=== PATIENT | female | born 1970 | race Caucasian/White ===

== ENCOUNTER 2018-07-01 11:23 | Inpatient (IN) ==
[2018-07-01] MEDS ORDERED: ceFAZolin 1 GM Premix Inj 1 GM/50 ML PIGGYBACK IV.SIG ONE (12:12)
[2018-07-01 12:29] LABS: Baso # (Auto) 0.1 th/mm3 (0.0-0.2); Baso % (Auto) 0.8 % (0.0-2.0); Eos # (Auto) 0.1 th/mm3 (0.0-0.4); Eos % (Auto) 1.5 % (0.0-4.0); Hematocrit 37.9 % (35.0-46.0); Hemoglobin 12.1 gm/dL (11.6-15.3); Lymph # (Auto) 1.3 th/mm3 (1.0-4.8); Lymph % (Auto) 12.9 % (9.0-44.0); Mean Corpuscular HGB Conc 31.9 % (32.0-36.0); Mean Corpuscular Hemoglobin 23.7 pg (27.0-34.0); Mean Corpuscular Volume 74.3 fL (80.0-100.0); Mean Platelet Volume 8.1 fL (7.0-11.0); Mono # (Auto) 0.6 th/mm3 (0.0-0.9); Mono % (Auto) 5.7 % (0.0-8.0); Neut # (Auto) 7.8 th/mm3 (1.8-7.7); Neut % (Auto) 79.1 % (16.0-70.0); Platelet Count 534 th/mm3 (150-450); Red Cell Distribution Width 28.2 % (11.6-17.2); White Blood Count 9.9 th/mm3 (4.0-11.0)
[2018-07-01] MEDS ORDERED: Metoprolol Tartrate 25 MG Tablet PO ONE (12:45)
[2018-07-01] MEDS ORDERED: Chlorhexidine Gluconate 2% 1 Pack (2 Cloths) TOPICAL ONE (12:45)
[2018-07-01] MEDS ORDERED: Sodium Chlor 0.9% Inj 500 ML IV.CONT ONE (12:45)
[2018-07-01 12:47] LABS: Anion Gap 9 meq/L (5-15); Blood Urea Nitrogen 19 mg/dL (7-18); Calcium 8.7 mg/dL (8.5-10.1); Chloride 105 meq/L (98-107); Glomerular Filtration Rate Greater Than 89 mL/min (>89); Glucose,Random 79 mg/dL (74-106); Potassium 3.8 meq/L (3.5-5.1); Sodium 141 meq/L (136-145)
[2018-07-01] MEDS ORDERED: ceFAZolin 2 GM IV; once IV.SIG SCH (13:00)
[2018-07-01] MEDS ORDERED: Bupivacaine Liposomal PF 1.3% Inj 20 ML Vial ONE (13:02)
[2018-07-01 13:06] LABS: Acanthocytes Occ; Ovalocytes 1+
[2018-07-01 13:07] LABS: Dimorphic RBC Present; Platelet Morphology Normal (Normal)
[2018-07-01] MEDS ORDERED: Benzocaine 20% Oral Spray 60 ML Can OROPHARYNG PRN (16:00)
[2018-07-01] MEDS ORDERED: Naloxone Inj 0.4 MG/ML Vial IV.PUSH PRN ×2 (16:00)
[2018-07-01] MEDS ORDERED: Post-op Orders (for Pharmacy) OTHER ONE (16:15)
[2018-07-01] MEDS ORDERED: fentaNYL Citrate Inj 100 MCG/2 ML Ampul ONE ×2 (16:22)
[2018-07-01] MEDS ORDERED: *HYDROmorphone PF Inj 1 MG/ML Ampul PERIprocedural Use ONLY ONE ×2 (16:30→16:52)
[2018-07-01] MEDS: Pantoprazole Inj 40 MG Vial IV.PUSH SCH (17:00)
[2018-07-01] MEDS: Ketorolac Inj 30 MG/ML (IVP) Vial IV.PUSH PRN (17:10)
[2018-07-01] MEDS: HYDROmorphone PCA Inj 6 MG/30 ML PCA.VIAL PCA PRN (17:20)
--- NOTE | 2018-07-01 19:00 | MP ---
cc: Aaron Robins MD DATE OF OPERATION: 07/01/2018 PREOPERATIVE DIAGNOSIS: Colon cancer near the stomach. 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 PROCEDURE PERFORMED: Transverse colectomy with splenic flexure colectomy with partial gastric resection attached to the tumor with primary anastomosis. takedown of splenic flexure ANESTHESIA: General. SURGEON: Aaron Robins MD TRAM INSPECTOR: ALEXANDRA Huitron The TANKAGE GRINDER was present from beginning to the end of the case assisting in all portions of the procedure. It was necessary to have this individual in the room to assist in the above surgical procedure. The surgical procedure was assisted by the TANKAGE GRINDER. The TANKAGE GRINDER presence was necessary throughout the case for appropriate retraction, dissection, visualization, and resection of the important anatomical structures during the surgical procedure. The TANKAGE GRINDER was assisting throughout the entirety of the operation. The skill set of the TANKAGE GRINDER is medically and surgically necessary to safely complete the surgical procedure. During the surgical case the operating room surgical scrub technician was working instrument table and passing instruments to the attending surgeon and TANKAGE GRINDER The TANKAGE GRINDER was directly assisting the operating surgeon and involved in the technical aspects of the surgical case. INDICATIONS FOR PROCEDURE: This is a 48-year-old female who was found to have anemia and a colonoscopy showed a malignancy in the colon. Plans were made for above. FINDINGS: Intraoperatively, it was found that coinciding with the CT scan this tumor in the distal transverse colon was very attached to the stomach and could not be . It appeared to be infiltrating the gastric wall and for this reason, a partial gastrectomy along the greater curve was done to resect the tumor en bloc. DESCRIPTION OF PROCEDURE: The patient was taken to the operating room and placed in supine position. After anesthesia, her abdomen was prepped with Betadine. She had a Vidal catheter, 2 IVs and an arterial line that anesthesia placed. A timeout was done. She was given preoperative antibiotics. She had a preoperative bowel prep as well. We made an incision just below the xiphoid down to the left of the umbilicus, an 11 cm incision, and dissected into the abdomen. A wound protector device was applied. The tumor was easily palpable along the distal portion of the transverse colon about 6 cm from the right colic. We were able to take down the white line of Toldt near the spleen. The splenic attachments were taken down with a Harmonic scalpel to release the splenic flexure. Once this was accomplished, we were able to dissect up to the proximal transverse colon and that was very dilated from the partial obstruction. We got about 6 cm proximal to the tumor just before the middle colic vessels. Using the GI stapling device, we the colon. The tumor was attached to the omentum and also the greater curve of the stomach and could not be . It appeared to be infiltrating the muscular layer of the stomach. For this reason, we dissected down to the root of the mesentery, avoiding the middle colic. The tumor was then elevated so we were able to get into the lesser sac, identifying the pancreas. The tumor was then further identified where it was attached to the stomach along the greater curve. Once we the distal end just past the splenic flexure with the GI stapling device, we were able to elevate the specimen further up into the field. We were able to take a green load of the GI stapling device and fire 2 loads to resect and divide the greater curve of the stomach attached to the tumor. The specimen was then removed en bloc. We labeled the proximal margin with a short stitch and the stomach with a long silk suture. This was for pathological identification. We then irrigated copiously. She appeared to have adequate stomach volume along the distal end of the greater curve. We were able to thread the NG tube through the pylorus. We oversewed a portion of the staple line with silk pop-off suture. The liver was smooth. The peritoneal surfaces were smooth. The gallbladder was smooth no stones. We then readied our anastomoses. There was excellent blood supply in the proximal and distal components of the colon. We did a [id number] functional end-to-end anastomosis by lining up the tinea, creating 2 enterotomies and using a GI stapling device, I was able to staple across to perform a [id number] functional end-to-end anastomosis. The crotch of the staple line was reinforced with a silk suture. The TX 60 was then used to staple the remaining enterotomy. This staple line was oversewn with silk pop-off suture. The mesentery was reapproximated with 3-0 silk to prevent internal herniation. The omentum left on the proximal colon was then draped over the staple line. We then irrigated copiously. We checked the appendix and it was normal. The ascending colon was normal. Her uterus was slightly enlarged. Both ovaries appeared normal. Uterus had a consistency with fibroids. No other gross abnormality was seen. We then closed the fascia with #1 PDS looped. The skin was closed with a skin stapling device and a GERALD dressing was applied. An abdominal binder was applied. The patient was returned to recovery room. There were no immediate postop complication at the time of this dictation. MD ANNABELLE Phillips/leno , 04:23 PM , 04:35 PM JOHNATHAN
[2018-07-02] MEDS: HYDROmorphone PCA Inj 6 MG/30 ML PCA.VIAL PCA PRN ×2 (05:43→14:49)
[2018-07-02 06:50] LABS: Baso # (Auto) 0.1 th/mm3 (0.0-0.2); Baso % (Auto) 0.6 % (0.0-2.0); Eos % (Auto) 0.2 % (0.0-4.0); Hematocrit 30.2 % (35.0-46.0); Hemoglobin 9.5 gm/dL (11.6-15.3); Lymph # (Auto) 1.1 th/mm3 (1.0-4.8); Lymph % (Auto) 11.5 % (9.0-44.0); Mean Corpuscular HGB Conc 31.4 % (32.0-36.0); Mean Corpuscular Hemoglobin 23.6 pg (27.0-34.0); Mean Corpuscular Volume 75.2 fL (80.0-100.0); Mean Platelet Volume 8.7 fL (7.0-11.0); Mono # (Auto) 0.5 th/mm3 (0.0-0.9); Mono % (Auto) 5.9 % (0.0-8.0); Neut # (Auto) 7.5 th/mm3 (1.8-7.7); Neut % (Auto) 81.8 % (16.0-70.0); Platelet Count 392 th/mm3 (150-450); Red Blood Count 4.02 mil/mm3 (4.00-5.30); Red Cell Distribution Width 27.5 % (11.6-17.2); White Blood Count 9.2 th/mm3 (4.0-11.0)
[2018-07-02 07:19] LABS: Anion Gap 8 meq/L (5-15); Blood Urea Nitrogen 11 mg/dL (7-18); Calcium 7.5 mg/dL (8.5-10.1); Carbon Dioxide 27.2 meq/L (21.0-32.0); Chloride 107 meq/L (98-107); Glomerular Filtration Rate Greater Than 89 mL/min (>89); Glucose,Random 65 mg/dL (74-106); Potassium 4.1 meq/L (3.5-5.1); Sodium 142 meq/L (136-145)
[2018-07-02 08:19] LABS: Acanthocytes Occ; Dimorphic RBC Present; Ovalocytes 1+; Platelet Estimate Normal (Normal); Platelet Morphology Normal (Normal)
--- NOTE | 2018-07-02 09:40 | P.PNGS ---
Subjective Interval history: DAILY PROGRESS NOTE FOR SURGICAL ATTENDING, DR. LAUREN MENDOZA Resting in bed No complaints No events overnight Pain controlled Daughter at the bedside Physical Exam Vital signs: Vital Signs 07/01/18 12:27 07/01/18 16:14 07/01/18 16:30 Temperature 98.4 F 98.0 F Pulse Rate 78 97 H 92 H Respiratory Rate 18 27 H 20 Blood Pressure 110/68 130/62 Pulse Oximetry 98 100 100 07/01/18 16:45 07/01/18 17:00 07/01/18 17:15 Temperature Pulse Rate 100 H 109 H 110 H Respiratory Rate 18 22 14 Blood Pressure 141/69 H 139/68 131/65 Pulse Oximetry 100 100 100 07/01/18 17:30 07/01/18 18:00 07/01/18 20:00 Temperature 98.5 F 98.0 F 98.5 F Pulse Rate 112 H 109 H 107 H Respiratory Rate 13 11 L 16 Blood Pressure 129/67 134/69 126/57 L Pulse Oximetry 99 99 97 07/01/18 22:00 07/02/18 00:00 07/02/18 04:00 Temperature 97.8 F 98 F 97.7 F Pulse Rate 96 H 84 75 Respiratory Rate 17 15 16 Blood Pressure 112/59 L 104/57 L 112/64 Pulse Oximetry 99 99 99 07/02/18 08:51 Temperature Pulse Rate Respiratory Rate Blood Pressure Pulse Oximetry 95 Intake & Output 07/01/18 07/02/18 07/02/18 18:59 06:59 18:59 Intake Total 2850 / 2850 1200 / 1200 1200 / 1200 Output Total 200 / 200 375 / 375 Balance 2650 / 2650 825 / 825 1200 / 1200 Weight 49 kg 46.2 kg Intake: IV 150 / 150 1200 / 1200 LR 1000 mL Inj 1,000 ML @ 100 1000 / 1000 mls/hr IV.CONT .Q10H [facility] Rx#: [id number] Ofirmev Inj 1,000 mg In 100 ml 200 / 200 @ 400 mls/hr IV.SIG Q6H [facility] Rx# :[id number] Ancef 1 GM Premix Inj 1 gm In 50 / 50 50 ml @ 0 mls/hr IV.SIG .STK[facility] Rx#:[id number] Flagyl 500 MG Inj 100 ML @ 100 100 / 100 mls/hr IV.SIG SUPERVISOR PAINTING DEPARTMENT [facility] Rx#: [id number] Oral 0 / 0 Anesthesia Amount 2700 / 2700 Other 1200 / 1200 Output: Urine 375 / 375 Estimated Blood Loss 50 / 50 Urine Amount (Catheter) 150 / 150 Indwelling Urethral Catheter 150 / 150 Gastric Drainage 0 / 0 Right Nare Nasogastric Tube 0 / 0 Other: Other Intake Source Saline Solution Weight On Admission 49 kg Narrative: Alert and awake Abd: soft; flat; tender with palpation; GERALD in place with just two scant dots of bloody drainage---good seal; Binder in place - Urinary Catheter Management Indwelling Urethral Catheter Cath placed during this visit: yes Reason for continuing: Other continuation reason Insertion date: 07/01/18 Insertion time: 14:06 Results - Labs 07/02/18 05:01 07/02/18 05:01 Laboratory Results - last 24 hr 07/01/18 07/01/18 07/01/18 12:15 12:15 12:15 WBC 9.9 RBC 5.10 Hgb 12.1 Hct 37.9 MCV 74.3 L MCH 23.7 L MCHC 31.9 L RDW 28.2 H Plt Count 534 H D MPV 8.1 Prelim Diff (Auto) Slide review pending Neut % (Auto) 79.1 H Lymph % (Auto) 12.9 [place] % (Auto) 5.7 Eos % (Auto) 1.5 Baso % (Auto) 0.8 Neut # (Auto) 7.8 H Lymph # (Auto) 1.3 [place] # (Auto) 0.6 Eos # (Auto) 0.1 Baso # (Auto) 0.1 WBC Differential . Diff Scan Auto diff confirmed Differential Comment . Platelet Estimate High H Platelet Morphology Normal Dimorphic RBCs Present H Ovalocytes 1+ H Acanthocytes (Spur) Occ H Sodium 141 Potassium 3.8 Chloride 105 Carbon Dioxide 27.0 Anion Gap 9 BUN 19 H Creatinine 0.60 Estimated GFR Greater than 89 Random Glucose 79 Calcium 8.7 Blood Type O Positive Antibody Screen Negative MTS Gel Crossmatch See Detail 07/02/18 07/02/18 05:01 05:01 WBC 9.2 RBC 4.02 Hgb 9.5 L D Hct 30.2 L MCV 75.2 L MCH 23.6 L MCHC 31.4 L RDW 27.5 H Plt Count 392 MPV 8.7 Prelim Diff (Auto) Slide review pending Neut % (Auto) 81.8 H Lymph % (Auto) 11.5 [place] % (Auto) 5.9 Eos % (Auto) 0.2 Baso % (Auto) 0.6 Neut # (Auto) 7.5 Lymph # (Auto) 1.1 [place] # (Auto) 0.5 Eos # (Auto) 0.0 Baso # (Auto) 0.1 WBC Differential . Diff Scan Auto diff confirmed Differential Comment . Platelet Estimate Normal Platelet Morphology Normal Dimorphic RBCs Present H Ovalocytes 1+ H Acanthocytes (Spur) Occ H Sodium 142 Potassium 4.1 Chloride 107 Carbon Dioxide 27.2 Anion Gap 8 BUN 11 Creatinine 0.45 L Estimated GFR Greater than 89 Random Glucose 65 L Calcium 7.5 L D Blood Type Antibody Screen MTS Gel Crossmatch Assessment and Plan - Assessment (1) Adenocarcinoma of descending colon Code(s): C18.6 - Malignant neoplasm of descending colon Status: Acute Plan: 48 year old female POD1 transverse colectomy with splenic flexure colectomy with partial gastric resection -Continue IVF -NGT to [facility] until bowel function returns -Continue MEDICAL LABORATORY TECHNICIANS for pain control -DC Vidal -Recheck CBC in AM -OOB as tolerated - Attending Attestation NOTE FOR SURGICAL ATTENDING, DR. LAUREN MENDOZA I agree with above assessment and plan. The exam, history, and the medical decision-making described in the above note were completed with the assistance of the mid-level provider. I reviewed and agree with the findings presented. I attest that I had a [id number] encounter with the patient on the same day, and personally performed and documented my assessment and findings in the medical record. The following services were provided during this hospital visit: Chart data review, vital sign assessments/reviewing monitor data Review of consultations notes if present. Medication orders/review and/or management Ordering and/or reviewing lab tests Ordering and/or interpreting/reviewing x-rays and/or diagnostic studies Care of the patient and discussion of the patient with the care team Documentation time To help prompt me to consider important information that might be impacting today's encounter and assessment, Information from prior notes written by myself or my colleagues may have been "brought forward/copy and pasted" into today's note.
[2018-07-02] MEDS: Ketorolac Inj 30 MG/ML (IVP) Vial IV.PUSH PRN (16:22)
[2018-07-02] MEDS: Pantoprazole Inj 40 MG Vial IV.PUSH SCH (16:22)
[2018-07-03 05:43] LABS: Baso % (Auto) 0.6 % (0.0-2.0); Eos # (Auto) 0.1 th/mm3 (0.0-0.4); Hematocrit 30.6 % (35.0-46.0); Hemoglobin 9.4 gm/dL (11.6-15.3); Lymph # (Auto) 0.7 th/mm3 (1.0-4.8); Lymph % (Auto) 9.1 % (9.0-44.0); Mean Corpuscular Hemoglobin 23.7 pg (27.0-34.0); Mean Corpuscular Volume 77.5 fL (80.0-100.0); Mean Platelet Volume 8.6 fL (7.0-11.0); Mono # (Auto) 0.4 th/mm3 (0.0-0.9); Mono % (Auto) 5.5 % (0.0-8.0); Neut # (Auto) 6.4 th/mm3 (1.8-7.7); Neut % (Auto) 83.8 % (16.0-70.0); Platelet Count 369 th/mm3 (150-450); Red Blood Count 3.95 mil/mm3 (4.00-5.30); Red Cell Distribution Width 27.6 % (11.6-17.2); White Blood Count 7.7 th/mm3 (4.0-11.0)
[2018-07-03 05:46] LABS: Mean Corpuscular HGB Conc 30.6 % (32.0-36.0)
[2018-07-03 06:07] LABS: Anion Gap 13 meq/L (5-15); Blood Urea Nitrogen 6 mg/dL (7-18); Calcium 7.8 mg/dL (8.5-10.1); Carbon Dioxide 21.1 meq/L (21.0-32.0); Chloride 106 meq/L (98-107); Glomerular Filtration Rate Greater Than 89 mL/min (>89); Glucose,Random 50 mg/dL (74-106); Potassium 3.9 meq/L (3.5-5.1); Sodium 140 meq/L (136-145)
[2018-07-03 10:25] LABS: Acanthocytes Occ; Dimorphic RBC Present; Ovalocytes 1+
--- NOTE | 2018-07-03 12:19 | P.PNGS ---
Subjective Patient reports: feels better, pain is less, no flatus, no bowel movement, afebrile Physical Exam Vital signs: Vital Signs 07/02/18 15:20 07/02/18 16:00 07/02/18 19:57 Temperature 97.5 F L Pulse Rate 91 H Respiratory Rate 18 18 Blood Pressure 111/65 Pulse Oximetry 98 99 07/02/18 20:00 07/02/18 22:37 07/03/18 00:00 Temperature 97.8 F 97.9 F Pulse Rate 72 76 Respiratory Rate 18 20 18 Blood Pressure 119/56 L 124/60 Pulse Oximetry 99 99 07/03/18 04:00 07/03/18 08:00 Temperature 98.2 F 98.0 F Pulse Rate 68 72 Respiratory Rate 18 19 Blood Pressure 136/66 121/60 Pulse Oximetry 98 97 Intake & Output 07/02/18 07/03/18 07/03/18 18:59 06:59 18:59 Intake Total 2300 / 2300 0 / 0 Output Total 500 / 500 1000 / 1000 Balance 1800 / 1800 -1000 / -1000 Weight 46.2 kg Intake: IV 1100 / 1100 LR 1000 mL Inj 1,000 ML @ 100 1000 / 1000 mls/hr IV.CONT .Q10H [facility] Rx#: [id number] Ofirmev Inj 1,000 mg In 100 ml 100 / 100 @ 400 mls/hr IV.SIG Q6H [facility] Rx# :[id number] Oral 0 / 0 Other 1200 / 1200 Output: Urine 1000 / 1000 Urine Amount (Catheter) 500 / 500 Indwelling Urethral Catheter 500 / 500 Other: Other Intake Source Saline Solution - Routine Abdominal Exam Present: soft, normoactive bowel sounds, tenderness, surgical scars, wound - Urinary Catheter Management Indwelling Urethral Catheter Cath placed during this visit: yes, but has since been removed by the nurse Reason for continuing: Decision to DC catheter Insertion date: 07/01/18 Insertion time: 14:06 Removal date: 07/02/18 Removal time: 18:01 Results - Labs 07/03/18 04:49 07/03/18 04:49 Laboratory Results - last 24 hr 07/03/18 07/03/18 04:49 04:49 WBC 7.7 RBC 3.95 L Hgb 9.4 L Hct 30.6 L MCV 77.5 L MCH 23.7 L MCHC 30.6 L RDW 27.6 H Plt Count 369 MPV 8.6 Prelim Diff (Auto) Slide review pending Neut % (Auto) 83.8 H Lymph % (Auto) 9.1 Mcdonough % (Auto) 5.5 Eos % (Auto) 1.0 Baso % (Auto) 0.6 Neut # (Auto) 6.4 Lymph # (Auto) 0.7 L Mcd[place]ough # (Auto) 0.4 Eos # (Auto) 0.1 Baso # (Auto) 0.0 WBC Differential . Diff Scan Auto diff confirmed Differential Comment . Dimorphic RBCs Present H Ovalocytes 1+ H Acanthocytes (Spur) Occ H Sodium 140 Potassium 3.9 Chloride 106 Carbon Dioxide 21.1 Anion Gap 13 BUN 6 L Creatinine 0.43 L Estimated GFR Greater than 89 Random Glucose 50 L Calcium 7.8 L Assessment and Plan - Assessment (1) Adenocarcinoma of descending colon Code(s): C18.6 - Malignant neoplasm of descending colon Status: Acute Plan: 48 year old female POD1 transverse colectomy with splenic flexure colectomy with partial gastric resection -Continue IVF -NGT to [facility] until bowel function returns -Continue GRINDER SET UP OPERATOR EXTERNAL for pain control -DC Vidal -Recheck CBC in AM -OOB as tolerated - Plan await bowel function advised pt and RN that ice chips would be ok labs stable.
[2018-07-03] MEDS: HYDROmorphone PCA Inj 6 MG/30 ML PCA.VIAL PCA PRN (15:24)
[2018-07-03] MEDS: Pantoprazole Inj 40 MG Vial IV.PUSH SCH (16:58)
[2018-07-04] MEDS: HYDROmorphone PCA Inj 6 MG/30 ML PCA.VIAL PCA PRN ×3 (00:26→21:29)
--- NOTE | 2018-07-04 14:33 | P.PNGS ---
Subjective Patient reports: feels better, pain is less, no bowel movement Physical Exam Vital signs: Vital Signs 07/03/18 15:55 07/03/18 16:00 07/03/18 19:58 Temperature 98.0 F Pulse Rate 74 Respiratory Rate 18 19 20 Blood Pressure 130/63 Pulse Oximetry 95 07/03/18 20:00 07/04/18 00:00 07/04/18 04:00 Temperature 98.0 F 97.9 F 98.0 F Pulse Rate 72 75 71 Respiratory Rate 17 16 17 Blood Pressure 124/60 112/66 137/74 Pulse Oximetry 95 96 96 07/04/18 08:00 07/04/18 12:00 Temperature 97.4 F L 97.8 F Pulse Rate 70 72 Respiratory Rate 19 19 Blood Pressure 135/65 134/67 Pulse Oximetry 96 97 Intake & Output 07/03/18 07/04/18 07/04/18 18:59 06:59 18:59 Intake Total 1125 / 1125 1000 / 1000 1000 / 1000 Output Total 900 / 900 1700 / 1700 1225 / 1225 Balance 225 / 225 -700 / -700 -225 / -225 Weight 46 kg Intake: IV 1000 / 1000 1000 / 1000 1000 / 1000 LR 1000 mL Inj 1,000 ML @ 100 1000 / 1000 1000 / 1000 1000 / 1000 mls/hr IV.CONT .Q10H [facility] Rx#: [id number] Oral 125 / 125 Output: Urine 700 / 700 1400 / 1400 1225 / 1225 Gastric Drainage 200 / 200 300 / 300 Right Nare Nasogastric Tube 200 / 200 300 / 300 Other: # Bowel Movements 0 - Constitutional no acute distress - Routine Abdominal Exam Present: soft, tenderness. Absent: normoactive bowel sounds, distended, rebound , guarding - Urinary Catheter Management Indwelling Urethral Catheter Cath placed during this visit: yes, but has since been removed by the nurse Reason for continuing: Decision to DC catheter Insertion date: 07/01/18 Insertion time: 14:06 Removal date: 07/02/18 Removal time: 18:01 Results - Labs 07/03/18 04:49 07/03/18 04:49 Laboratory Results - last 24 hr 07/01/18 12:15 MTS Gel Crossmatch See Detail Assessment and Plan - Assessment (1) Adenocarcinoma of descending colon Code(s): C18.6 - Malignant neoplasm of descending colon Status: Acute Plan: 48 year old female POD2 transverse colectomy with splenic flexure colectomy with partial gastric resection -Continue IVF -NGT, clam, clears -Continue EARLY CHILDHOOD COORDINATOR for pain control -OOB
[2018-07-04] MEDS: Pantoprazole Inj 40 MG Vial IV.PUSH SCH (18:01)
--- NOTE | 2018-07-05 09:33 | P.PNGS ---
Subjective Patient reports: feels better Interval history: DAILY PROGRESS NOTE FOR SURGICAL ATTENDING, DR. LAUREN MENDOZA Patient up walking the halls Pain is adequate NG tube clamped for almost 24 hours No nausea or vomiting Physical Exam Vital signs: Vital Signs 07/04/18 12:00 07/04/18 16:00 07/04/18 20:00 Temperature 97.8 F 97.8 F 97.8 F Pulse Rate 72 73 64 Respiratory Rate 19 18 17 Blood Pressure 134/67 131/66 134/60 Pulse Oximetry 97 96 97 07/04/18 23:29 07/04/18 23:58 07/05/18 02:21 Temperature 98.3 F Pulse Rate 65 Respiratory Rate 16 17 18 Blood Pressure 129/72 Pulse Oximetry 98 07/05/18 04:00 07/05/18 08:00 Temperature 98.1 F 97.8 F Pulse Rate 58 L 63 Respiratory Rate 17 18 Blood Pressure 136/75 138/71 Pulse Oximetry 97 98 Intake & Output 07/04/18 07/05/18 07/05/18 18:59 06:59 18:59 Intake Total 1175 / 1175 2900 / 2900 Output Total 1625 / 1625 Balance -450 / -450 2900 / 2900 Weight 46.6 kg Intake: IV 1000 / 1000 1999 / 1999 LR 1000 mL Inj 1,000 ML @ 100 1000 / 1000 2000 / 1999 mls/hr IV.CONT .Q10H [facility] Rx#: [id number] Oral 175 / 175 900 / 900 Output: Urine 1225 / 1225 Gastric Drainage 400 / 400 Right Nare Nasogastric Tube 400 / 400 Other: # Voids 2 # Bowel Movements 0 Narrative: Alert and awake NG tube clamped Abd: soft; flat; tender with palpation; GERALD in place with just two scant dots of bloody drainage---good seal; Binder in place - Urinary Catheter Management Indwelling Urethral Catheter Cath placed during this visit: yes, but has since been removed by the nurse Reason for continuing: Decision to DC catheter Insertion date: 07/01/18 Insertion time: 14:06 Removal date: 07/02/18 Removal time: 18:01 Results - Labs 07/03/18 04:49 07/03/18 04:49 Assessment and Plan - Assessment (1) Adenocarcinoma of descending colon Code(s): C18.6 - Malignant neoplasm of descending colon Status: Acute Plan: 48 year old female PO transverse colectomy with splenic flexure colectomy with partial gastric resection -Continue IVF -NGT, scarlett lind -Continue RECREATION THERAPY AIDE for pain control -OOB H&H stable Path pending - Attending Attestation NOTE FOR SURGICAL ATTENDING, DR. LAUREN MENDOZA I attest that I had a [id number] encounter with the patient on the same day, and personally performed and documented my assessment and findings in the medical record. The following services were provided during this hospital visit: Chart data review, vital sign assessments/reviewing monitor data Review of consultations notes if present. Medication orders/review and/or management Ordering and/or reviewing lab tests Ordering and/or interpreting/reviewing x-rays and/or diagnostic studies Care of the patient and discussion of the patient with the care team Documentation time To help prompt me to consider important information that might be impacting today's encounter and assessment, Information from prior notes written by myself or my colleagues may have been "brought forward/copy and pasted" into today's note.
[2018-07-05] MEDS: Pantoprazole Inj 40 MG Vial IV.PUSH SCH (18:44)
--- NOTE | 2018-07-06 14:52 | P.PNGS ---
Subjective Interval history: DAILY PROGRESS NOTE FOR SURGICAL ATTENDING, DR. LAUREN MENDOZA Vomited this AM ---NGT back to [facility] Physical Exam Vital signs: Vital Signs 07/05/18 17:04 07/05/18 20:00 07/06/18 00:00 Temperature 97.8 F 97.8 F 98.1 F Pulse Rate 57 L 59 L 66 Respiratory Rate 18 19 19 Blood Pressure 113/55 L 128/63 127/66 Pulse Oximetry 97 97 98 07/06/18 04:00 07/06/18 08:00 07/06/18 12:00 Temperature 97.8 F 97.1 F L 97.3 F L Pulse Rate 59 L 55 L 56 L Respiratory Rate 19 16 16 Blood Pressure 127/67 111/59 L 115/69 Pulse Oximetry 98 97 98 Intake & Output 07/05/18 07/06/18 07/06/18 18:59 06:59 18:59 Intake Total 1720 / 1720 1600 / 1600 Balance 1720 / 1720 1600 / 1600 Weight 46.6 kg Intake: IV 1000 / 1000 1000 / 1000 LR 1000 mL Inj 1,000 ML @ 100 1000 / 1000 1000 / 1000 mls/hr IV.CONT .Q10H [facility] Rx#: [id number] Oral 720 / 720 600 / 600 Other: # Voids 3 2 # Bowel Movements 1 Narrative: Alert and awake Abd: soft; GERALD In place; NGT to [facility] with bilious drainage - Urinary Catheter Management Indwelling Urethral Catheter Cath placed during this visit: yes, but has since been removed by the nurse Reason for continuing: Decision to DC catheter Insertion date: 07/01/18 Insertion time: 14:06 Removal date: 07/02/18 Removal time: 18:01 Results - Labs 07/07/18 05:24 07/07/18 05:24 Assessment and Plan - Assessment (1) 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 Code(s): C18.4 - Malignant neoplasm of transverse colon; C77.2 - Secondary and unspecified malignant neoplasm of intra-abdominal lymph nodes Status: Acute Plan: 48 year old female PO transverse colectomy with splenic flexure colectomy with partial gastric resection -Continue IVF -Continue NGT to [facility] -Added Reglan -Check BMP today -Continue CURRICULUM SUPERVISOR for pain control -OOB -Reviewed pathology with patient and provided copy to patient (2) Post-operative nausea and vomiting Code(s): R11.2 - Nausea with vomiting, unspecified; Z98.890 - Other specified postprocedural states Status: Acute - Attending Attestation NOTE FOR SURGICAL ATTENDING, DR. LAUREN MENDOZA I agree with above assessment and plan. The exam, history, and the medical decision-making described in the above note were completed with the assistance of the mid-level provider. I reviewed and agree with the findings presented. I attest that I had a [id number] encounter with the patient on the same day, and personally performed and documented my assessment and findings in the medical record. The following services were provided during this hospital visit: Chart data review, vital sign assessments/reviewing monitor data Review of consultations notes if present. Medication orders/review and/or management Ordering and/or reviewing lab tests Ordering and/or interpreting/reviewing x-rays and/or diagnostic studies Care of the patient and discussion of the patient with the care team Documentation time To help prompt me to consider important information that might be impacting today's encounter and assessment, Information from prior notes written by myself or my colleagues may have been "brought forward/copy and pasted" into today's note.
[2018-07-06] MEDS ORDERED: Scopalamine 1.5 MG Patch T-DERMAL SCH (16:00)
[2018-07-06] MEDS: Pantoprazole Inj 40 MG Vial IV.PUSH SCH (17:06)
[2018-07-06] MEDS: HYDROmorphone PCA Inj 6 MG/30 ML PCA.VIAL PCA PRN (18:55)
[2018-07-07 06:13] LABS: Hematocrit 34.2 % (35.0-46.0); Hemoglobin 10.8 gm/dL (11.6-15.3); Mean Corpuscular HGB Conc 31.7 % (32.0-36.0); Mean Corpuscular Hemoglobin 24.2 pg (27.0-34.0); Mean Corpuscular Volume 76.4 fL (80.0-100.0); Mean Platelet Volume 8.2 fL (7.0-11.0); Platelet Count 430 th/mm3 (150-450); Red Blood Count 4.48 mil/mm3 (4.00-5.30); Red Cell Distribution Width 28.3 % (11.6-17.2); White Blood Count 5.9 th/mm3 (4.0-11.0)
[2018-07-07 06:45] LABS: Anion Gap 11 meq/L (5-15); Blood Urea Nitrogen 2 mg/dL (7-18); Calcium 8.5 mg/dL (8.5-10.1); Carbon Dioxide 23.2 meq/L (21.0-32.0); Chloride 106 meq/L (98-107); Glomerular Filtration Rate Greater Than 89 mL/min (>89); Glucose,Random 69 mg/dL (74-106); Magnesium 1.8 mg/dL (1.5-2.5); Potassium 3.3 meq/L (3.5-5.1); Sodium 140 meq/L (136-145)
[2018-07-07] MEDS: HYDROmorphone PCA Inj 6 MG/30 ML PCA.VIAL PCA PRN (08:31)
--- NOTE | 2018-07-07 09:21 | P.PNGS ---
Subjective Interval history: DAILY PROGRESS NOTE FOR SURGICAL ATTENDING, DR. LAUREN MENDOZA Resting in bed Had uneventful night till about 0700 when she had nausea and small amount of emesis Physical Exam Vital signs: Vital Signs 07/06/18 12:00 07/06/18 16:00 07/06/18 20:00 Temperature 97.3 F L 97.7 F 97.9 F Pulse Rate 56 L 62 59 L Respiratory Rate 16 16 16 Blood Pressure 115/69 124/65 130/64 Pulse Oximetry 98 96 97 07/06/18 21:24 07/06/18 23:45 07/07/18 00:00 Temperature 98.2 F Pulse Rate 55 L 60 Respiratory Rate 20 15 Blood Pressure 136/71 Pulse Oximetry 97 07/07/18 04:00 Temperature 98.2 F Pulse Rate 52 L Respiratory Rate 15 Blood Pressure 130/71 Pulse Oximetry 97 Intake & Output 07/06/18 07/07/18 07/07/18 18:59 06:59 18:59 Intake Total 1080 / 1080 500 / 500 Output Total 400 / 400 Balance 1080 / 1080 100 / 100 Weight 46.4 kg Intake: IV 600 / 600 400 / 400 LR 1000 mL Inj 1,000 ML @ 100 600 / 600 400 / 400 mls/hr IV.CONT .Q10H [facility] Rx#: [id number] Oral 480 / 480 100 / 100 Output: Gastric Drainage 400 / 400 Right Nare Nasogastric Tube 400 / 400 Other: # Voids 3 2 Date of Last Bowel Movement 07/05/18 Narrative: Alert and awake Abd: GERALD in place; soft; non tender NGT to LIWS - Urinary Catheter Management Indwelling Urethral Catheter Cath placed during this visit: yes, but has since been removed by the nurse Reason for continuing: Decision to DC catheter Insertion date: 07/01/18 Insertion time: 14:06 Removal date: 07/02/18 Removal time: 18:01 Results - Labs 07/07/18 05:24 07/07/18 05:24 Laboratory Results - last 24 hr 07/07/18 07/07/18 05:24 05:24 WBC 5.9 RBC 4.48 Hgb 10.8 L Hct 34.2 L MCV 76.4 L MCH 24.2 L MCHC 31.7 L RDW 28.3 H Plt Count 430 MPV 8.2 Sodium 140 Potassium 3.3 L Chloride 106 Carbon Dioxide 23.2 Anion Gap 11 BUN 2 L Creatinine 0.39 L Estimated GFR Greater than 89 Random Glucose 69 L Calcium 8.5 Magnesium 1.8 Assessment and Plan - Assessment (1) 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 Code(s): C18.4 - Malignant neoplasm of transverse colon; C77.2 - Secondary and unspecified malignant neoplasm of intra-abdominal lymph nodes Status: Acute Plan: 48 year old female s/p transverse colectomy with splenic flexure colectomy with partial gastric resection -Continue IVF -Continue NGT to LIWS -DC Reglan -Scop patch -K 3.3--- ordered IV KCl -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 LAUREN MENDOZA I agree with above assessment and plan. Sitting at bedside reading the Bible No more nausea NG tube clamped Tolerating clear liquids The exam, history, and the medical decision-making described in the above note were completed with the assistance of the mid-level provider. I reviewed and agree with the findings presented. I attest that I had a [id number] encounter with the patient on the same day, and personally performed and documented my assessment and findings in the medical record. The following services were provided during this hospital visit: Chart data review, vital sign assessments/reviewing monitor data Review of consultations notes if present. Medication orders/review and/or management Ordering and/or reviewing lab tests Ordering and/or interpreting/reviewing x-rays and/or diagnostic studies Care of the patient and discussion of the patient with the care team Documentation time To help prompt me to consider important information that might be impacting today's encounter and assessment, Information from prior notes written by myself or my colleagues may have been "brought forward/copy and pasted" into today's note.
[2018-07-07] MEDS: Potassium Chlor 20 mEq Premix 20 MEQ/100 ML PIGGYBACK IV.SIG SCH ×2 (09:52→12:40)
[2018-07-07] MEDS: Pantoprazole Inj 40 MG Vial IV.PUSH SCH (18:13)
--- NOTE | 2018-07-08 12:21 | P.PNGS ---
Subjective Interval history: DAILY PROGRESS NOTE FOR SURGICAL ATTENDING, DR. LAUREN MENDOZA Up to chair No nausea overnight/this morning Tolerating clears Physical Exam Vital signs: Vital Signs 07/07/18 16:00 07/07/18 20:00 07/08/18 00:00 Temperature 97.8 F 97.6 F 98.0 F Pulse Rate 65 55 L 54 L Respiratory Rate 17 18 20 Blood Pressure 129/67 128/72 127/58 L Pulse Oximetry 97 97 97 07/08/18 04:00 07/08/18 08:00 Temperature 98.5 F 98.3 F Pulse Rate 57 L 58 L Respiratory Rate 20 17 Blood Pressure 120/60 130/64 Pulse Oximetry 98 98 Intake & Output 07/07/18 07/08/18 07/08/18 18:59 06:59 18:59 Intake Total 2160 / 2160 420 / 420 1000 / 1000 Output Total 550 / 550 Balance 1610 / 1610 420 / 420 1000 / 1000 Weight 45 kg Intake: IV 1200 / 1200 1000 / 1000 LR 1000 mL Inj 1,000 ML @ 100 1000 / 1000 1000 / 1000 mls/hr IV.CONT .Q10H [facility] Rx#: [id number] KCl 20 mEq Premix Inj 20 meq In 200 / 200 100 ml @ 50 mls/hr IV.SIG Q2H [facility] Rx#:[id number] Oral 960 / 960 420 / 420 Output: Gastric Drainage 550 / 550 Right Nare Nasogastric Tube 550 / 550 Other: # Voids 4 2 Narrative: Alert and awake Abd: GERALD in place; soft; NGT clamped - Urinary Catheter Management Indwelling Urethral Catheter Cath placed during this visit: yes, but has since been removed by the nurse Reason for continuing: Decision to DC catheter Insertion date: 07/01/18 Insertion time: 14:06 Removal date: 07/02/18 Removal time: 18:01 Results - Labs 07/07/18 05:24 07/07/18 05:24 Assessment and Plan - Assessment (1) 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 Code(s): C18.4 - Malignant neoplasm of transverse colon; C77.2 - Secondary and unspecified malignant neoplasm of intra-abdominal lymph nodes Status: Acute Plan: 48 year old female s/p transverse colectomy with splenic flexure colectomy with partial gastric resection -Continue IVF -Continue NGT to LIWS to clamp; connect to LIWS if any nausea/vomiting occur -Scop patch -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 LAUREN MENDOZA I agree with above assessment and plan. The exam, history, and the medical decision-making described in the above note were completed with the assistance of the mid-level provider. I reviewed and agree with the findings presented. I attest that I had a [id number] encounter with the patient on the same day, and personally performed and documented my assessment and findings in the medical record. The following services were provided during this hospital visit: Chart data review, vital sign assessments/reviewing monitor data Review of consultations notes if present. Medication orders/review and/or management Ordering and/or reviewing lab tests Ordering and/or interpreting/reviewing x-rays and/or diagnostic studies Care of the patient and discussion of the patient with the care team Documentation time To help prompt me to consider important information that might be impacting today's encounter and assessment, Information from prior notes written by myself or my colleagues may have been "brought forward/copy and pasted" into today's note.
[2018-07-08] MEDS: Pantoprazole Inj 40 MG Vial IV.PUSH SCH (17:42)
--- NOTE | 2018-07-09 09:35 | P.DS ---
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 The patient's pain was controlled using oral pain medications. She was able to tolerate a regular diet. She will follow up in the office. - Time Spent with Patient Total time spent providing and/or coordinating discharge services: Less than 30 minutes Exam Vital signs: Vital Signs 07/08/18 12:00 07/08/18 16:00 07/08/18 20:00 Temperature 97.9 F 97.7 F 97.8 F Pulse Rate 50 L 52 L 57 L Respiratory Rate 17 17 18 Blood Pressure 129/63 130/67 119/57 L Pulse Oximetry 99 98 97 07/09/18 00:00 07/09/18 04:00 07/09/18 08:00 Temperature 97.8 F 97.7 F 98.2 F Pulse Rate 76 55 L 54 L Respiratory Rate 18 18 18 Blood Pressure 113/59 L 127/72 150/70 H Pulse Oximetry 97 98 98 Intake & Output 07/08/18 07/09/18 07/09/18 18:59 06:59 18:59 Intake Total 1720 / 1720 1000 / 1000 Balance 1720 / 1720 1000 / 1000 Weight 45 kg Intake: IV 1000 / 1000 1000 / 1000 LR 1000 mL Inj 1,000 ML @ 100 1000 / 1000 1000 / 1000 mls/hr IV.CONT .Q10H [facility] Rx#: [id number] Oral 720 / 720 Other: # Voids 3 2 Date of Last Bowel Movement 07/06/18 # Bowel Movements 0 Narrative: Alert and awake Abd: soft; GERALD removed. Dressing in place. 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 Results Procedures completed during hospitalization: 48 year old female s/p transverse colectomy with splenic flexure colectomy with partial gastric resection Completed studies during hospitalization: Pending at discharge 07/01/18 07:44 Surgical [PTH] Routine Discharge Plan - Discharge Disposition Patient Disposition: 01 Discharge Home - Discharge Condition Condition: Good - Discharge Order Discharge Orders: Discharge Order (Routine); Ordered 07/09/18 Ordered By: Nighat Salinas - Discharge Details Anticipated Discharge Date: 07/09/18 Discharge Comment: rx on chart - Physicians Team Primary Care Provider: Primary Care Abby Crowe Attending Provider: Aaron Robins - Rxs /Orders / Referrals /Forms Prescriptions: New hydrocodone-acetaminophen [[place]] 5-325 mg Tablet 1 tab PO Q4H PRN (Reason: acute post op pain exception ) Qty: 18 RF: 0 Continue ferrous sulfate [FeroSul] 325 mg (65 mg iron) Tablet 325 mg PO BID Qty: 60 RF: 0 pantoprazole 40 mg Tablet,Delayed Release (Dr/Ec) 40 mg PO DAILY Qty: 30 RF: 0 promethazine [Phenergan] 25 mg Suppository 25 mg FL Q4-6H PRN (Reason: nausea/vomiting ) Qty: 30 RF: 0 Discontinued hydrocodone-acetaminophen 5-325 mg Tablet 1 tab PO Q6H PRN (Reason: pain 2-10 if can take PO) Qty: 12 RF: 0 Referrals: Aaron Robins MD [Physician] - See Instructions (Appt set for Jul 15 at 9: 10am) Primary Care Abby Crowe [Primary Care Provider] - See Instructions ([facility] [phone] [place] [address] *[facility] offers same day APPT. Call the morning you would like to be seen Office opens at 8:00am ) - Discharge Instructions Patient Printed Instructions: Hydrocodone/Acetaminophen (By mouth), Colectomy ( DC)
== END 2018-07-09 12:08 | disposition home or self-care (01) ==
LOC: HSDI 11:23 → N07 18:47
PROVIDERS: ADMIT Surgery; ATTEND Surgery